=== PATIENT | female | born 1975 | race Caucasian/White ===

== ENCOUNTER 2017-11-27 09:18 | Observation (INO) ==
[2017-11-27] MEDS ORDERED: ONDANSETRON 4 MG/2 ML VIAL IVP ONE (09:40)
[2017-11-27] MEDS ORDERED: MORPHINE SULFATE 2 MG/1 ML IVP ONE (09:40)
[2017-11-27] MEDS ORDERED: NORMAL SALINE 10 ML SYRINGE FLUSH IVP PRN ×4 (09:40→17:00)
[2017-11-27] MEDS ORDERED: Sodium Chloride 0.9% 1,000 ML PRIMARY IV ONE (09:40)
[2017-11-27 10:28] LABS: BASOPHILS # (AUTO) 0.04 10*3/UL; BASOPHILS % (AUTO) 0.6 % (0-1); EOSINOPHILS # (AUTO) 0.03 10*3/UL; EOSINOPHILS % (AUTO) 0.4 % (0-8); Hematocrit [HCT] 42.6 % (37.0-47.0); LYMPHOCYTES # (AUTO) 1.71 10*3/uL; MEAN CORPUSCULAR HEMOGLOBIN 30.2 PG (27-31); MEAN CORPUSCULAR HGB CONC 32.9 g/dL (33-37); MEAN PLATELET VOLUME 9.9 FL (7.4-12.2); MONOCYTES # (AUTO) 0.54 10*3/UL (0.3-0.8); MONOCYTES % (AUTO) 7.5 % (5-15); NEUTROPHILS # (AUTO) 4.92 10*3/UL; NEUTROPHILS % (AUTO) 67.9 % (50-80); RED BLOOD COUNT 4.63 10^6/uL (4.20-5.40)
[2017-11-27 10:40] LABS: BLOOD UREA NITROGEN 8 mg/dL (7-22); BUN/CREATININE RATIO 11.42 (6-20); LIPASE 140 IU/L (23-300); SERUM ALBUMIN 3.8 g/dL (3.5-4.8)
[2017-11-27 10:47] LABS: PLATELET MORPHOLOGY COMMENT NORMAL MORPHOLOGY (NORM); RBC MORPHOLOGY COMMENT NORMAL MORPHOLOGY (NORM); WBC MORPHOLOGY COMMENT NORMAL MORPHOLOGY (NORM)
--- NOTE | 2017-11-27 12:47 | DI ---
CT ABDOMEN SCAN WITH IV CONTRAST, 11/27/2017 9:40 AM : Clinical History: Abdominal pain. Previous Exam: None at this facility. Scans are performed from the lower lung bases through the liver and kidneys with IV contrast. 95 ml o f Isovue 300 was injected IV. The technologist utilized the pre-existing IV that was flowing freely. During injection, the pressure varied between 40-40 PSI to as high as 50 PSI which is well within nor mal limits. However, after completion of the study, the patient complained of pain in her arm in revi ew of the CT scan show that no contrast is present indicating there was extravasation of contrast int o the right upper extremity. I discussed in late terms the situation with contrast extravasation with the patient and her partner and explained that it was possible the IV had infiltrated prior to the i njection or that the injection caused the extravasation. I explained that in rare cases, the swelling and the arm could be significant enough to act as a tourniquet that would compromise flow to the res t of the arm and affect the nerves and muscles as well as the arteries and veins. Nerve circulation e valuation was normal. I demonstrated to the patient has she could check for capillary filling in her digits. I also explained that she should try to maintain elevation of the right arm and to use cold p acks initially and then change to warm packs if she so desired. I informed both parties that we would call them in the next 24 to see how she were doing, and she would also receive a call from the emerg ency room personnel. Both parties appear to understand the discussion and indicating that they had no questions. The lung bases are clear. There is hepatomegaly without overt fatty infiltration. The gallbladder is grossly normal. The patient is status post gastric bypass procedure. There is no abnormality of the s pleen, pancreas, and adrenal glands. Both kidneys are normal in size, shape, position and contour. Th ere is no hydronephrosis or hydroureter. No renal or ureteral calculi are present. There are no abnor mal retrocrural or periaortic nodes. No ascites is present. READIN. Inadvertent extravasation of contrast into the right upper arm. There is mild swelling but nerve circulation evaluation is intact. The situation was discussed in detail in lay terms with the patient and her partner. Followup instructions were discussed as well. 2. Hepatomegaly without definite fatty infiltration. The remainder of the study is normal. CT PELVIS SCAN WITH IV CONTRAST, 11/27/2017 9:40 AM: Clinical History: See above. Previous Exam: None at this facility. Scans are performed from just superior to the umbilicus to the symphysis pubis with IV contrast. This is the same bolus of contrast used for the CT scans of the abdomen. Scans through the lower abdomen and pelvis show no masses or abnormal fluid collections. There is no adenopathy. The appendix is in a retrocecal position and measures 10 mm at the base and this decrease s in size distally. The appendix itself is very short in length and there is no periserosal inflammat ory/infiltrative change and there is no fluid surrounding the appendix. The small bowel, terminal ile um, and ileocecal valve are normal. The colon is also normal. There are no hernias. The patient is st atus post hysterectomy. The left ovary is normal. There is a 35 mm low-density cystic lesion of the r ight ovary. READIN. The appendix has an abnormal caliber at the base but there is no inflammatory/infiltrative change to indicate the patient has acute appendicitis. The differential for an enlarged appendix without ev idence of acute appendicitis would include a carcinoid tumor or a mucinoid tumor of the appendix. 2. There is a 35 mm low-density cystic lesion of the right ovary most likely representing an ovarian cyst.
--- NOTE | 2017-11-27 13:23 | PDOC ---
Abdomen/Flank HPI - General Chief Complaint: Abdomen Pain Stated Complaint: ABD/LOW BACK PAIN SINCE SATURDAY Date Seen by Provider: 11/27/17 Time Seen by Provider: 09:20 Source: POSITIVE: Patient Exam Limitations: POSITIVE: No limitations Nurse's Notes Reviewed & Considered: Yes - History of Present Illness Initial Comments: The patient is a 42-year-old female who presents to the emergency department with lower abdominal pain. She states that yesterday she had onset of pain across her lower abdomen that radiates through to her back. This pain seemed to intensify overnight and she states that she was awake most of the night. She does have associated nausea however has not had any vomiting. She has had several loose stools the last couple of days. Yesterday she noticed a little bit of bright red blood on the stool when she wiped and again this morning. She denies any fevers or chills. She has had previous gastric bypass surgery in 2003. In addition she has had previous hysterectomy. She believes that she has both ovaries. She did have one prior to her hysterectomy as well. She denies any current urinary symptoms. - Patient Home Medications Home Medications: Home Medications Lactobacillus Acidophilus [Probiotic] 1 ea PO PRN PRN 11/27/17 Simethicone [Gas-X] 125 mg PO PRN PRN 11/27/17 - Patient Allergies Allergies/Adverse Reactions: Allergies 3 Allergy/AdvReac Type Severity Reaction Status Date / Time Horse/Equine Containing Allergy Unknown RX CHILD Verified 11/27/17 09:24 Products amoxicillin trihydrate AdvReac Mild YEAST Verified 11/27/17 09:24 [From Amoxil] INFECTION Past Medical History - heen HEENT History: Other (please comment) Additional HEENT History: WEARS GLASSES Cardiovascular History: Other (please comment) Additional Cardiovasular History: MURMUR Respiratory History: Denies History Gastrointestinal History: Other (please comment) Additional Gastrointestinal History: GASTRIC BYPASS 2003 Genitourinary History: Denies History Endocrine History: Hypothyroidism, Other (please comment) Additional Endocrine History: 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 Musculoskeletal History: Back Pain, Carpal Tunnel Prosthesis or Implant: No Neurological History: Migraines, Motion Sickness Blood Disorders: Anemia Psychiatric History: Depression History of Sexually Transmitted Diseases: Yes (hpv) Female Reproductive History: Hysterectomy Obstetrical History: Delivery Additional Obstetrical History: x1 Cancer History: Denies History In Past Year Been Physically Harmed or Verbally Threatened: No (PER PATIENT) History of MDRO: No History of Other Communicable Diseases: No Tobacco Use: Never Smoker Alcohol Use: Occasionally Type of alcohol normally used: Hard Liquor In the Past 12 Months, Have Used or Abuse Any Substance: None Previous Surgical History: Yes Type / Date of Surgery: GASTRIC BYPASS, SKIN REMOVAL X 2, C SECTION X 1, PARTIAL HYSTERECTOMY Anesthesia Reactions: No Malignant Hyperthermia: No Family History of Malignant Hyperthermia: No Significant Family History: No pertinent family hx Past Medical History Reviewed: Reviewed - No Changes ROS - Limitations ROS Limitations: No Limitations Constitution: DENIES: Chills, Fever Cardiovascular: REPORTS: Denies Cardiac Symptoms Respiratory: REPORTS: Denies Resp Symptoms Neurological: DENIES: Headache Gastrointestinal: REPORTS: Abdominal Pain, Nausea, Diarrhea (Loose stools), Other (Blood on the paper when she wiped yesterday and today after a bowel movement). DENIES: Vomitting, Black Stools Musculoskeletal: REPORTS: Denies MS Symptoms Genitourinary: REPORTS: Denies Symptoms Eyes: REPORTS: Denies Symptoms ENT: REPORTS: Denies Symptoms Skin: DENIES: Rash Abdominal/Flank Pain PE - General Appearance General Appearance: POSITIVE: Alert, Cooperative, No Acute Distress - HEENT HEENT: POSITIVE: Head Inspection Nml, Eyes Inspection Nml, Ears Inspection Nml, Nose Inspection Nml, Pharynx Inspect. Nml - Neck Neck: POSITIVE: Normal Inspection. NEGATIVE: Lymphadenopathy - Respiratory Respiratory: POSITIVE: No Respiratory Distress, Breath Sounds Normal - Cardiovascular Cardiovascular: POSITIVE: Regular Rate and Rhythm, Heart Sounds Normal Peripheral Pulses: Dorsalis-pedis (R): 2+, Dorsalis-pedis (L): 2+ - Abdomen Abdomen: Soft: (All Quadrants), Normal Bowel Sounds: (All Quadrants) Additional Abdominal Details: The patient does have lower abdominal tenderness and some mild guarding in the lower abdomen, no rebound tenderness, no palpable mass, no obvious CVA tenderness - Skin Skin: POSITIVE: Intact, No Rash - Extremities Extremity: Normal ROM: (All Extremities), Normal Inspection: (All Extremities) - Neurological Neurological: POSITIVE: Oriented X3, Motor Normal, Sensation Normal Abdomen Progress - Results Reviewed by me Xrays/CTs/US Reviewed by me: Yes Discussed with Radiologist: Yes Radiology Findings: CT scan of the abdomen and pelvis reveals a 3.5 cm cyst in the right ovary. In addition her appendix is enlarged at the base with a normal diameter in the distal appendix and no obvious inflammatory changes per radiologist. Lab Results Reviewed by Me: Yes CBC and BMP: 11/27/17 10:22 11/27/17 10:22 - Patient's Progress MDM / ED Course: Shortly after arrival an IV was established and the patient did receive morphine and Zofran IV. This did help significantly with her pain. Lab work is all essentially unremarkable. CT scan of the abdomen and pelvis was performed. The IV contrast ended up extravasated into her arm secondary to IV malfunction. The scan does show a 3.5 cm cyst in the right ovary. In addition her appendix appears abnormal measuring 10 mm at the base with a normal diameter distally. There is no obvious inflammatory changes. Because of the abnormal appearing appendix a surgical consultation was obtained from Dr. Munroe. He evaluated the patient and the decision was made to take her to the operating room for appendectomy. - Consult Counseled: POSITIVE: Patient, Family, RE: Lab Results, RE: Radiology Results, RE : DX, RE: Need for F/U Patient Care Time - Estimated PCT Patient Care Time (In Minutes): 30 Vital Signs - Recent Vital Signs Vital Signs: Vital Signs (Last 8 hours) Temp Pulse Resp BP Pulse Ox 11/27/17 09:18 97.1 F 56 L 15 116/96 96 - VS Reviewed Vital Signs Reviewed: Yes Discharge Clinical Impression: Right ovarian cyst, Lower abdominal pain Discharge Disposition: Transferred to OR Condition: Stable Follow Up With: OSBALDO VAZQUEZ [Primary Care Provider] -
[2017-11-27 13:41] LABS: BILIRUBIN,URINE NEGATIVE (NEG); CLARITY,URINE CLEAR (CLEAR); COLOR,URINE YELLOW (Y); GLUCOSE, URINE (UA) NEGATIVE (NEG); OCCULT BLOOD,URINE Trace-lysed (NEG); PROTEIN,URINE NEGATIVE (NEG); UROBILINOGEN,URINE 0.2 EU/dL (0.2)
--- NOTE | 2017-11-27 13:44 | CONSULT ---
Consult Note - Consult Consult Date: 11/27/17 Reason for Consult: PreOp Consulation : General Surgery Requesting Physician: Dr. Harmon Primary Care Provider: Lorraine Roque MD - History of Present Illness History of Present Illness: The patient is a 42-year-old female who reports problems began on Saturday. She developed lower abdominal and back pain. It has been progressive since that time. It was sharp and stabbing at first. Now it is just constant. She has had nausea without vomiting. She reports she hasn't vomited since her gastric bypass surgery. She felt feverish and had chills. She has had diarrhea. He has diarrhea most of the time since her bypass. She has never had a pain like this before. As her pain has been progressive she presented to the emergency room. Her lab work was unremarkable. A CT scan was done which shows a 3-1/2 cm right ovarian cyst. She is status post hysterectomy. The appendix is 10 mm which is dilated. It is an abnormal appendix without inflammatory changes. It is in a retrocecal location. I discussed everything with the patient. It is unclear whether her appendix may be causing her pain or it may be ovarian cyst. Nothing else is seen that would account for her pain. As we would recommend appendectomy for her abnormal appendix anyway she desires to proceed with that now. We will plan open appendectomy and drainage of her right ovarian cyst as well as exploration of her lower abdomen and pelvis. Review of Systems - Gastrointestinal Gastrointestinal / Abdominal: REPORTS: Nausea, Diarrhea, Abdominal Pain, Poor Appetite, See HPI Past Medical History Medical History: Hypothyroid. Prediabetic. Anemia. Surgical History: Hysterectomy without salpingo-oophorectomy. Gastric bypass. 1. Excision of excess skin from her arms. Panniculectomy. Tobacco Use: Never Smoker In the Past 12 Months, Have Used or Abuse Any of the Following Substance: None Alcohol Use: Occasionally Medication / Allergies Home Medications: Home Medications 3 Medication Instructions Recorded Confirmed Type Lactobacillus Acidophilus 1 ea PO PRN PRN 11/27/17 11/27/17 History [Probiotic] Simethicone [Gas-X] 125 mg PO PRN PRN 11/27/17 11/27/17 History Allergies/Adverse Reactions: Allergies 3 Allergy/AdvReac Type Severity Reaction Status Date / Time Horse/Equine Containing Allergy Unknown RX CHILD Verified 11/27/17 09:24 Products amoxicillin trihydrate AdvReac Mild YEAST Verified 11/27/17 09:24 [From Amoxil] INFECTION Results - Labs CBC and BMP: 11/27/17 10:22 11/27/17 10:22 - Imaging Status: Image Reviewed by Me (And discussed with the radiologist.) Exam - Vitals Vital Signs: Vital Signs Temperature 97.1 F Temperature Source Temporal Artery Scan Pulse Rate [Pulse Oximeter] 56 Respiratory Rate 15 Blood Pressure [Left Radial 116/96 Artery] Pulse Ox 96 Oxygen Delivery Method Room Air Height 5 ft 8 in Weight 290 lb - General General Appearance: Cooperative, Mild Distress - Respiratory Respiratory Exam: POSITIVE: Clear to Auscultation - Bilaterally, Breathing Non Labored - Cardiovascular Cardiovascular Exam: POSITIVE: No Murmur - GI/Abdominal GI/Abdominal Exam: POSITIVE: Normal Bowel Sounds, Non Distended, Soft, Guarding (Voluntary. Right lower quadrant.) Additional GI/Abdominal Exam Details: Right lower quadrant pain to deep palpation. Some right costovertebral angle and flank pain as well. No signs of peritoneal irritation. Multiple abdominal scars. - Neurological Neurological Exam: POSITIVE: Alert, Oriented x 3 - Psychiatric Psychiatric Exam: POSITIVE: Normal Affect, Normal Mood Assessment and Plan - Patient Problems (1) Lower abdominal pain Current Visit: Yes Status: Acute Priority: High Onset Date: ~11/24/17 Comment: Etiology unclear. Her pain has been progressive. She is focally tender. Her pain may be because of her abnormal appendix or it may be her ovarian cyst. Code(s): R10.30 - Lower abdominal pain, unspecified (2) Appendicitis Current Visit: Yes Status: Acute Priority: High Onset Date: ~11/27/17 Comment: Probably does not have acute appendicitis. Her appendix is enlarged and abnormal. The appendix needs to be removed for diagnostic purposes at any rate. She desires to proceed with that today which is reasonable.The procedure has been discussed with the patient in complete yet simple terms including benefits, risks, and alternatives. All questions have been answered. Informed consent has been obtained. Code(s): K37 - Unspecified appendicitis (3) Right ovarian cyst Current Visit: Yes Status: Acute Priority: Medium Comment: Plan intraoperative drainage of her right ovarian cyst.The procedure has been discussed with the patient in complete yet simple terms including benefits, risks, and alternatives. All questions have been answered. Informed consent has been obtained. Code(s): N83.201 - Unspecified ovarian cyst, right side
[2017-11-27] MEDS ORDERED: Lactated Ringers 1,000 ML PRIMARY IV SCH (13:45)
[2017-11-27] MEDS ORDERED: Ertapenem Inj 1 GM in Sodium Chloride 0.9% 100 ML IV SCH (13:45)
[2017-11-27] MEDS ORDERED: MIDAZOLAM 5 MG/1 ML ONE (13:51)
[2017-11-27] MEDS ORDERED: fentaNYL Inj 250 MCG/5 ML VIAL ONE (13:51)
[2017-11-27] MEDS ORDERED: PROPOFOL 10 MG/1 ML (200 MG/20 ML) VIAL IV ONE (13:53)
[2017-11-27] MEDS ORDERED: LIDOCAINE MPF 2% - 5 ML (20 MG/1 ML) ONE (13:53)
[2017-11-27] MEDS ORDERED: ROCURONIUM 10 MG/1 ML - 5 ML VIAL IVP ONE ×2 (13:54→15:03)
[2017-11-27] MEDS ORDERED: LIDOCAINE W/ SODIUM BICARB 0.5 ML SYR ONE (14:08)
[2017-11-27] MEDS ORDERED: Lactated Ringers 1,000 ML PRIMARY IV ONE (14:08)
[2017-11-27] MEDS ORDERED: Sodium Chloride 0.9% 100 ML IV ONE (14:27)
[2017-11-27] MEDS ORDERED: ERTAPENEM 1 GM VIAL ONE (14:27)
[2017-11-27] MEDS ORDERED: Acetaminophen 1000mg Inj 1,000 MG/100 ML VIAL IV ONE (14:31)
[2017-11-27 14:40] LABS: RBC,URINE 0-1 /hpf; URINE SAMPLE TYPE CLEAN CATCH URINE
[2017-11-27] MEDS ORDERED: KETAMINE 100 MG/1 ML - 5 ML ONE (14:53)
[2017-11-27] MEDS ORDERED: Sodium Chloride 0.9% vial 20 ML ONE (15:09)
[2017-11-27] MEDS ORDERED: BUPivacaine Liposome/PF (Exparel) Inj 20ml vial INFIL ONE (15:10)
[2017-11-27] MEDS ORDERED: SUGAMMADEX SODIUM 200 MG/2 ML VIAL IV ONE (15:21)
[2017-11-27] MEDS ORDERED: KETOROLAC 30 MG/1 ML VIAL ONE (15:25)
[2017-11-27] MEDS ORDERED: HYDROmorphone 2 MG/1 ML ONE (16:03)
[2017-11-27] MEDS: HYDROmorphone 2 MG/1 ML IVP PRN ×2 (16:05→16:23)
--- NOTE | 2017-11-27 16:12 | GEN.OPNOTE ---
Operative Note Surgery Date: 11/27/17 Preoperative Diagnosis: Right lower quadrant abdominal pain. Right ovarian cyst. Dilated appendix. Postoperative Diagnosis: Right lower quadrant abdominal pain. Right ovarian cyst. Normal appendix. Peritoneal fold. Normal terminal ileum. Procedure: #1 appendectomy. #2 drainage right ovarian cyst. Surgeon: Jesu Munroe MD Anesthesia Provider: Magdaleno Berrios CRNA Anesthesia Type: General Estimated Blood Loss (mL): 10 Fluids: 1500 mL of crystalloid. 1 g of IV Invanz at the start of the procedure. 30 mg of IV Toradol at the end of the procedure. 1 g of IV acetaminophen at the end of the procedure. Pathology: Specimen to pathology included the appendix. Indications: See preoperative diagnosis. Patient had focal right lower quadrant tenderness. CT scan which showed what appeared to be a dilated appendix at 1 cm. There is no inflammatory changes. There was an ovarian cyst. With her abnormal sized appendix it was felt it would be recommended she have her appendix removed at any rate. She opted to do that today. Findings: Normal appendix. Fold in the peritoneum near the base of the appendix. Right ovarian cyst. Normal terminal ileum. No fluid or pus in the peritoneal cavity. No other pathology identified. Complications: None. Operative Summary: The patient was taken to the operating room and placed on the operating table in the supine position. Following the induction of adequate general anesthetic the abdomen was prepped and draped in a sterile fashion. A surgical timeout was done. A standard incision was made over McBurney's point. It was carried down to the fascia with electrocautery. The external oblique was split along the course of its fibers using electrocautery. The external oblique was retracted. The abdominal wall was transected using a muscle-splitting technique. The peritoneum was elevated and incised. An Ken retractor was placed. The cecum and appendix were mobilized. The appendix was retrocecal. There was a folding on itself of the lateral peritoneal attachment. The lateral peritoneal attachment was incised with electrocautery. The appendix was mobilized. Once fully mobilized the mesoappendix was taken down by serially clamping dividing and ligating the mesoappendix until the appendix was freed to its base. The base of the appendix was clamped with a straight clamp. The clamp was unclamped and moved distally. The base was tied off with an 0 chromic. The appendix was amputated. The stump was cauterized and inverted into the base of the cecum using a Z-plasty suture of 2-0 Vicryl. The right ovary was delivered into the wound. There was a tense cyst on the right. At the thinnest portion an incision was made with electrocautery with complete drainage of the ovarian cyst. Hemostasis was assured. I palpated all around the cecum and retrocecal area. There were no abnormalities. There was no abnormal fluid in the abdomen or pelvis. The terminal ileum was run and the distal 3 feet were normal. All intestinal contents were returned to the abdominal cavity. Hemostasis was assured. Appropriate irrigation and suctioning were performed. The cecum was returned to the relative anatomic position and covered with omentum. The peritoneum was closed with 2-0 Vicryl. The muscle layers were closed with 0 Vicryl. The wound was irrigated as we closed in layers. Exparel was infiltrated circumferentially into the subcutaneous tissue. Mustapha's fascia was closed with 2-0 Vicryl. The skin was closed with surgical miquel followed by a sterile dressing. The patient tolerated the entire procedure well without complication. He was taken to the recovery room in stable condition. All counts were correct. Patient Problems - Patient Problem List (1) Lower abdominal pain Current Visit: Yes Status: Acute Onset Date: ~11/24/17 Priority: High Code(s): R10.30 - Lower abdominal pain, unspecified Category: Medical (2) Appendicitis Current Visit: Yes Status: Acute Onset Date: ~11/27/17 Priority: High Code(s): K37 - Unspecified appendicitis Category: Medical (3) Right ovarian cyst Current Visit: Yes Status: Acute Priority: Medium Code(s): N83.201 - Unspecified ovarian cyst, right side Category: Medical Procedure Codes - Surgical Procedures Primary Surgical Procedure: 89980 : Appendectomy Secondary Surgical Procedure: Other CPT Code(s) (55872-[id number] of right ovarian cyst.)
[2017-11-27] MEDS ORDERED: Prochlorperazine Edisylate Inj 10mg/2ml vial IVP PRN (16:13)
--- NOTE | 2017-11-27 16:15 | CRNA.PROGR ---
Anesthesia Recovery Phase I - Post Anesthesia Evaluation Patient's Condition on Arrival in Phase I: Stable Pain Level: 7
--- NOTE | 2017-11-27 16:17 | CRNA.PROGR ---
Anesthesia Time - - Start date: 11/27/17 End date: 11/27/17 - Procedure/Recovery Time Anesthesia : Time In: 14:34 Anesthesia : Time Out: 16:09 Anesthesia : Total Time: 95 - Total Anesthesia Time Total Anesthesia Time (minutes): 95 - Other Weight: 131.542 kg Height: 5 ft 8 in Body Mass Index (BMI): 44.1 Physical Status: P2 Anesthesia Type: General Anesthesia : ET
[2017-11-27] MEDS ORDERED: MORPHINE SULFATE 2 MG/1 ML IVP PRN (17:00)
[2017-11-27] MEDS ORDERED: ONDANSETRON 4 MG/2 ML VIAL IVP PRN (17:00)
[2017-11-27] MEDS ORDERED: Influenza 17-18 Vaccine (6mo+) Quad 60mcg/0.5ml PF IM ONE (17:09)
[2017-11-27] MEDS: HYDROcodone-APAP 5 MG -325 MG TABLET PO PRN (19:38)
[2017-11-27] MEDS: KETOROLAC 15 MG/1 ML VIAL IVP SCH (21:29)
[2017-11-27] MEDS: Acetaminophen 1000mg Inj 1,000 MG/100 ML VIAL IV PRN (22:25)
[2017-11-28] MEDS: HYDROcodone-APAP 5 MG -325 MG TABLET PO PRN ×5 (01:25→21:28)
[2017-11-28] MEDS: KETOROLAC 15 MG/1 ML VIAL IVP SCH ×4 (03:07→21:27)
--- NOTE | 2017-11-28 09:05 | PDOC(PROG) ---
Subjective Post Op Day: 1 Pain Management: PO Edward Catheter: No Flatus: Yes Diet: Regular (Not taking much orally.) Ambulating: Yes Date and Time of Service: 11/28/2017 8:45 AM Interval History: Reports abdominal and back pain. Doesn't feel like moving. No appetite. Sluggish. Has ambulated to the bathroom only. Took some [place] this morning. She is getting ready to go for a walk now. No flatus or bowel movement. No nausea. Objective : Data - Labs CBC and BMP: 11/27/17 10:22 11/27/17 10:22 - Vital Signs Vital Signs and I&O: Vital Signs - Last Taken Temperature 98 F 11/28/17 06:54 Pulse Rate 60 11/28/17 06:54 Respiratory Rate 17 11/28/17 06:54 Blood Pressure 120/72 11/28/17 06:54 Pulse Ox 92 11/28/17 06:54 Intake and Output (24hr x 4 totals) 11/26/17 11/27/17 11/28/17 11/29/17 05:59 05:59 05:59 05:59 Intake Total 2480 / 3980 Output Total 550 / 565 Balance 1930 / 3415 Objective : Exam - General General Appearance: No Acute Distress, Cooperative - Respiratory Respiratory Exam: Clear to Auscultation - Bilaterally, Breathing Non Labored - Cardiovascular Cardiovascular Exam: RRR, No Murmur - GI/Abdominal GI/Abdominal Exam: Normal Bowel Sounds, Non Distended, Soft Additional GI/Abdominal Exam Details: The dressing is clean, dry and intact. Incisional tenderness and right lower quadrant tenderness to palpation. The remaining abdomen is soft. - Neurological Neurological Exam: Alert, Oriented x 3 - Psychiatric Psychiatric Exam: Flat Affect Assessment and Plan - Patient Problems (1) Lower abdominal pain Current Visit: Yes Status: Acute Priority: High Onset Date: ~11/24/17 Comment: Continues postop. It seems to be predominantly incisional at this time. Code(s): R10.30 - Lower abdominal pain, unspecified (2) Appendicitis Current Visit: Yes Status: Acute Priority: High Onset Date: ~11/27/17 Comment: Status post open appendectomy. The appendix was normal. This was discussed with the patient. Continue postoperative care. Patient had a lot of gas in her sigmoid colon and cecum. We'll try Dulcolax suppository today. Ambulation will also help. May not be ready for discharge today we will check her later on. Code(s): K37 - Unspecified appendicitis (3) Right ovarian cyst Current Visit: Yes Status: Acute Priority: Medium Comment: Status post surgical drainage. Code(s): N83.201 - Unspecified ovarian cyst, right side
[2017-11-28] MEDS ORDERED: BISACODYL 10 MG SUPPOSITORY RECTAL ONE (09:06)
[2017-11-28] MEDS: Acetaminophen 1000mg Inj 1,000 MG/100 ML VIAL IV PRN (20:16)
[2017-11-28] MEDS: DOCUSATE 100 MG CAPSULE PO SCH (21:29)
[2017-11-29] MEDS: HYDROcodone-APAP 5 MG -325 MG TABLET PO PRN ×2 (03:29→13:34)
[2017-11-29] MEDS: KETOROLAC 15 MG/1 ML VIAL IVP SCH ×2 (03:29→09:35)
[2017-11-29 05:17] LABS: BASOPHILS # (AUTO) 0.03 10*3/UL; BASOPHILS % (AUTO) 0.5 % (0-1); EOSINOPHILS % (AUTO) 1.5 % (0-8); Hematocrit [HCT] 37.6 % (37.0-47.0); Hemoglobin [HGB] 11.8 g/dL (12.0-16.0); LYMPHOCYTES # (AUTO) 2.11 10*3/uL; MEAN CORPUSCULAR HEMOGLOBIN 29.2 PG (27-31); MEAN CORPUSCULAR HGB CONC 31.4 g/dL (33-37); MEAN CORPUSCULAR VOLUME 93.1 FL (81-99); MEAN PLATELET VOLUME 10.1 FL (7.4-12.2); MONOCYTES # (AUTO) 0.66 10*3/UL (0.3-0.8); RED BLOOD COUNT 4.04 10^6/uL (4.20-5.40)
[2017-11-29 05:28] LABS: PLATELET MORPHOLOGY COMMENT NORMAL MORPHOLOGY (NORM); RBC MORPHOLOGY COMMENT NORMAL MORPHOLOGY (NORM); WBC MORPHOLOGY COMMENT NORMAL MORPHOLOGY (NORM)
[2017-11-29 05:32] LABS: BLOOD UREA NITROGEN 7 mg/dL (7-22)
[2017-11-29] MEDS: Acetaminophen 1000mg Inj 1,000 MG/100 ML VIAL IV PRN (07:51)
[2017-11-29 09:05] VITALS: BP 112/75; RESP 18; TEMP 98.2; O2SAT 96
[2017-11-29] MEDS: DOCUSATE 100 MG CAPSULE PO SCH (09:35)
[2017-11-29] MEDS ORDERED: MAGNESIUM 400 MG/5 ML - 30 ML (MILK OF MAGNESIA) PO ONE (11:07)
--- NOTE | 2017-11-29 11:11 | DCSUMMARY ---
Discharge Summary Admit Date: 11/27/17 Discharge Date: 11/29/17 Admitting Diagnosis: acute appendicitis Discharge Diagnosis: Appendicitis. Ovarian cysts Primary Surgery and Date: 11/27/2017 appendectomy Hospital Course: Patient is in the hospital underwent an appendectomy. At time of surgery found to have a short thickened retrocecal appendix. Patient was also found to have a right ovarian cyst that was drained. First postoperative day patient is was not to the point be discharged home. Still having some abdominal pain. Second postoperative day patient's feel better is having some gas pains. Patient was at the point she was then able to be discharged home. Exam - Vitals Vital Signs: Vital Signs Temperature 98.2 F Temperature Source Tympanic Pulse Rate [Pulse Oximeter] 66 Pulse Rate 50 Respiratory Rate 18 Blood Pressure [Right Radial 112/75 Artery] Blood Pressure 119/76 Pulse Ox 96 Oxygen Flow Rate 2 Oxygen Delivery Method Room Air Height 5 ft 8 in Weight 312 lb 9.6 oz - GI/Abdominal GI/Abdominal Exam: POSITIVE: Normal Bowel Sounds, Non Tender, Non Distended, Soft (Dressings dry) Patient Problems - Patient Problem List (1) Appendicitis Current Visit: Yes Status: Acute Onset Date: ~11/27/17 Priority: High Code(s): K37 - Unspecified appendicitis Category: Medical (2) Right ovarian cyst Current Visit: Yes Status: Acute Priority: Medium Code(s): N83.201 - Unspecified ovarian cyst, right side Category: Medical
== END 2017-11-29 16:39 | disposition home or self-care (01) ==
LOC: ER 09:18 → OR 13:36 → MED/SURG 13:36 → OR 13:55
PROVIDERS: ADMIT Surgery; ATTEND Surgery